=== PATIENT | male | born 1970 | race Caucasian/White ===

== ENCOUNTER 2021-02-19 17:00 | Outpatient (REF) | payer OTHER, SELFPAY ==
[2021-02-19 21:48] LABS: HCT 40.9 % (40.0-50.0); HGB 13.8 g/dL (13.5-17.5); MCH 29.3 pg (27.0-33.0); MCHC 33.7 % (32.0-36.0); MCV 86.8 fL (80-95); MPV 8.3 fL (8.0-11.0); Platelet Count 441 10^3/uL (130-400); RBC 4.71 10^6/uL (4.36-5.78); RDW 11.8 % (11.8-14.1); RDW-SD 37.3 fL; WBC 10.43 10^3/uL (4.4-10.8)
[2021-02-19 22:24] LABS: Hemoglobin A1C 5.4 % (<5.7)
[2021-02-20 06:41] LABS: ALT 39 U/L (16-63); AST 21 U/L (15-37); Albumin 3.3 g/dL (3.4-5.0); Alkaline Phosphatase 82 U/L (46-116); Anion Gap 6.1 mmol/L (3-11); BUN 11 mg/dL (7-18); Bilirubin, Total 0.3 mg/dL (0.2-1.0); CO2 28.9 mmol/L (21.0-32.0); CREATININE 0.9 mg/dL (0.70-1.30); Calcium 9.2 mg/dL (8.5-10.1); Chloride 106 mmol/L (98-107); Glucose 87 mg/dL (74-106); Potassium 4.5 mmol/L (3.5-5.1); Sodium 141 mmol/L (136-145)
[2021-02-21 11:04] LABS: Hepatitis C Ab w Rflx HCV PCR Negative (Negative)
== END 2021-02-19 17:01 | disposition home or self-care (01) ==
LOC: NCHCN 17:00
PROVIDERS: PCP Physician Assistant; Visit Provider Internal Medicine
DX: Z72.89 Other problems related to lifestyle (principal); Z00.00 Encounter for general adult medical examination without abnormal findings; N41.0 Acute prostatitis
CPT/HCPCS: 80053; 85027; 86803; 81003; 83036

== ENCOUNTER 2021-02-21 12:18 | Outpatient (REF) | payer OTHER, SELFPAY ==
[2021-02-21 18:49] LABS: Bilirubin Negative (Negative); Blood Negative (Negative); Clarity Clear (Clear); Glucose Negative (Negative); Ketones Negative (Negative); Leukocyte Esterase Negative (Negative); Nitrite Negative (Negative); Specific Gravity >= 1.030 (1.005-1.025); Urobilinogen 0.2 EU/dL (Up TO 0.2)
== END 2021-02-21 12:19 | disposition home or self-care (01) ==
LOC: NCHCN 12:18
PROVIDERS: PCP Physician Assistant; Visit Provider Internal Medicine
DX: N41.0 Acute prostatitis (principal); Z72.89 Other problems related to lifestyle; Z00.00 Encounter for general adult medical examination without abnormal findings
CPT/HCPCS: 81003

== ENCOUNTER 2023-01-28 19:23 | Outpatient (REF) | payer OTHER, SELFPAY ==
[2023-01-28 20:20] LABS: ALT 73 U/L (16-63); AST 44 U/L (15-37); Albumin 3.7 g/dL (3.4-5.0); Alkaline Phosphatase 64 U/L (46-116); Anion Gap 9.2 mmol/L (3-11); BUN 16 mg/dL (7-18); Bilirubin, Total 0.6 mg/dL (0.2-1.0); CO2 24.8 mmol/L (21.0-32.0); Calcium 8.9 mg/dL (8.5-10.1); Calculated LDL 111 mg/dL (<100); Chloride 105 mmol/L (98-107); Cholesterol 199 mg/dL (<200); Estimated GFR 90.56 (mL/min/1.73m2); Glucose 105 mg/dL (74-106); HDL Cholesterol 76 mg/dL (40-60); Potassium 4.3 mmol/L (3.5-5.1); Sodium 139 mmol/L (136-145); Total Protein 7.2 g/dL (6.4-8.2); Triglyceride 63 mg/dL (<150)
[2023-01-28 20:28] LABS: Hemoglobin A1C 5.3 % (<5.7)
== END 2023-01-28 19:24 | disposition home or self-care (01) ==
LOC: NCHCN 19:23
PROVIDERS: PCP Physician Assistant; Visit Provider Internal Medicine
DX: I10 Essential (primary) hypertension (principal); K76.0 Fatty (change of) liver, not elsewhere classified; R79.89 Other specified abnormal findings of blood chemistry
CPT/HCPCS: 80053; 80061; 83036